=== PATIENT | female | born 1990 | race Two or more races ===

== ENCOUNTER 2020-11-30 14:20 | Emergency (ER) | payer OTHER ==
[2020-11-30] MEDS ORDERED: IBUPROFEN 800 MG TAB PO ONE (16:30)
== END 2020-11-30 16:51 | disposition home or self-care (01) ==
LOC: ER 14:20
DX: S93.491A Sprain of other ligament of right ankle, initial encounter (principal); X50.1XXA Overexertion from prolonged static or awkward postures, initial encounter; Y93.89 Activity, other specified; Y92.89 Other specified places as the place of occurrence of the external cause; Y99.8 Other external cause status
CPT/HCPCS: 73610